=== PATIENT | female | born 1970 | race Two or more races ===

== ENCOUNTER 2021-11-08 16:51 | Inpatient (IN) | payer BC, MEDICAID ==
[~2021-11-08] VITALS: Ht 157.5 cm; Wt 78.0 kg
[~2021-11-08 16:51] MED LIST: LEVO50TA7 PO; METO-158 PO; SIMV-13 PO
[2021-11-08 17:38] LABS: Basophils # (auto) 0 10 ^3/uL (0-0.2); Basophils % (auto) 0.5 % (0.0-2.0); Eosinophils # (auto) 0.2 10 ^3/uL (0-0.8); Hematocrit 41.3 % (36.0-46.0); Hemoglobin 13.4 g/dL (12.2-16.2); Lymphocytes # (auto) 3.2 10 ^3/uL (0.4-5.4); Lymphocytes % (auto) 31.4 % (10.0-50.0); Mean Corpuscular Hemoglobin 27.1 pg (28.0-32.0); Mean Corpuscular Hgb Conc. 32.5 g/dL (32.0-36.0); Mean Corpuscular Volume 83.4 fL (80.0-100.0); Monocytes # (auto) 0.6 10 ^3/uL (0-1.3); Monocytes % (auto) 6.2 % (0.0-12.0); Neutrophils % (auto) 59.9 % (37.0-80.0); Nucleated Red Blood Cells % 0.1 %; Red Blood Cells 4.96 10^6/uL (4.0-5.20); Red Cell Distribution Width 13.8 % (11.8-14.3); White Blood Cell 10.1 10^3/uL (4.4-10.8)
[2021-11-08 17:49] LABS: Albumin 3.8 g/dL (3.4-5.0); Calcium 8.8 mg/dL (8.5-10.1); Magnesium 2.3 mg/dL (1.6-2.6); Potassium 3.7 mmol/L (3.5-5.1)
[2021-11-08 17:52] LABS: Bilirubin, Total 0.3 mg/dL (0.2-1.0); Total Protein 7.5 g/dL (6.4-8.2)
[2021-11-09] MEDS ORDERED: MORPHINE SULFATE INJ 2 MG/ml SYRG IV PRN (00:45)
[2021-11-09] MEDS ORDERED: MORPHINE SULFATE 4 MG/ML SYR/VIAL IV PRN (00:45)
[2021-11-09] MEDS ORDERED: ACETAMINOPHEN 325 MG TAB PO PRN (00:45)
[2021-11-09] MEDS ORDERED: ONDANSETRON HCL 4 MG/2 ML VIAL IV PRN (00:45)
[2021-11-09] MEDS ORDERED: ZOLPIDEM TARTRATE 5 MG TAB PO PRN (00:45)
[2021-11-09] MEDS ORDERED: LORazepam 0.5 MG TAB PO PRN (00:45)
[2021-11-09] MEDS ORDERED: NITROGLYCERIN 0.4 MG SL TAB SL PRN ×2 (00:45)
[2021-11-09 01:56] LABS: Urine Bacteria NONE SEEN /hpf (None Seen); Urine Blood Negative /uL (Negative); Urine Specific Gravity 1.014 (1.001-1.035); Urine WBC 29 /hpf (0 - 5)
[2021-11-09] MEDS: LEVOTHYROXINE SODIUM 50 MCG TAB PO SCH (07:06)
[2021-11-09 07:30] LABS: Basophils # (auto) 0 10 ^3/uL (0-0.2); Basophils % (auto) 0.6 % (0.0-2.0); Eosinophils # (auto) 0.2 10 ^3/uL (0-0.8); Eosinophils % (auto) 3.1 % (0.0-7.0); Hematocrit 38.5 % (36.0-46.0); Hemoglobin 13.3 g/dL (12.2-16.2); Lymphocytes # (auto) 2.1 10 ^3/uL (0.4-5.4); Mean Corpuscular Hemoglobin 28.5 pg (28.0-32.0); Mean Corpuscular Hgb Conc. 34.6 g/dL (32.0-36.0); Mean Corpuscular Volume 82.4 fL (80.0-100.0); Monocytes # (auto) 0.5 10 ^3/uL (0-1.3); Monocytes % (auto) 7.3 % (0.0-12.0); Neutrophils # (auto) 3.7 10 ^3/uL (1.6-8.6); Red Blood Cells 4.67 10^6/uL (4.0-5.20); Red Cell Distribution Width 13.8 % (11.8-14.3); White Blood Cell 6.4 10^3/uL (4.4-10.8)
[2021-11-09 07:31] LABS: Calcium 8.5 mg/dL (8.5-10.1); Magnesium 2.2 mg/dL (1.6-2.6)
[2021-11-09 07:33] LABS: BUN/Creatinine Ratio 20.7
[2021-11-09 09:35] VITALS: BP 140/65
[2021-11-09] MEDS: CLOPIDOGREL BISULFATE 75 MG TAB PO SCH (09:35)
[2021-11-09] MEDS: DOCUSATE SOD 100 MG CAP PO SCH (09:35)
[2021-11-09] MEDS: ASPirin 81 mg TAB PO SCH (09:35)
[2021-11-09] MEDS ORDERED: METOPROLOL SUCCINATE XL 50 MG TAB PO SCH (10:00)
[2021-11-09] MEDS ORDERED: METOPROLOL TARTRATE 25 MG TAB PO SCH (10:00)
[2021-11-09] MEDS ORDERED: ENOXAPARIN SOD 80 MG/0.8ML SYRINGE SC SCH (10:00)
[2021-11-09] MEDS ORDERED: ENALAPRIL MALEATE 2.5 MG TAB PO SCH (10:00)
[2021-11-09] MEDS ORDERED: ASPI-378 PO (12:41)
[2021-11-09 13:20] VITALS: BP 169/88
[2021-11-09] MEDS ORDERED: hydrALAZINE HCL 20 MG/ML VL IV PRN (15:00)
[2021-11-09 17:08] VITALS: BP 111/45
[2021-11-09 22:00] VITALS: BP 148/52
[2021-11-09] MEDS ORDERED: ATORVASTATIN 20 MG TAB PO SCH ×2 (22:00)
[2021-11-10 05:00] VITALS: BP 126/48
[2021-11-10] MEDS: LEVOTHYROXINE SODIUM 50 MCG TAB PO SCH (06:58)
[2021-11-10 08:00] VITALS: BP 146/84
[2021-11-10 09:00] VITALS: BP 146/84
[2021-11-10] MEDS ORDERED: cefTRIAXone 1GM/50ML D5W 50 ML IV SCH (09:00)
[2021-11-10] MEDS: CLOPIDOGREL BISULFATE 75 MG TAB PO SCH (09:48)
[2021-11-10] MEDS: ASPirin 81 mg TAB PO SCH (09:48)
[2021-11-10] MEDS: DOCUSATE SOD 100 MG CAP PO SCH (09:48)
[2021-11-10] MEDS ORDERED: ENOXAPARIN SOD 40 MG/0.4 ML SYRINGE SC SCH (10:00)
[2021-11-10] MEDS ORDERED: LISINOPRIL 10 MG TAB PO SCH (10:00)
[2021-11-10] MEDS ORDERED: METOPROLOL SUCCINATE XL 50 MG TAB PO SCH (10:00)
[2021-11-10] MEDS ORDERED: METO-6 PO (12:55)
[2021-11-10] MEDS ORDERED: LISI-716 PO (12:55)
[2021-11-10 13:00] VITALS: BP 149/82
[2021-11-10 17:17] VITALS: BP 117/74
== END 2021-11-10 17:50 | disposition home or self-care (01) | DRG 198 ==
LOC: ER 16:51 → TELE 11-09 00:39 → TELE-WESTW 11-09 07:55
PROVIDERS: ADMIT Hospitalist; ATTEND Family Medicine
DX: I20.9 Angina pectoris, unspecified (principal); E03.9 Hypothyroidism, unspecified; E66.9 Obesity, unspecified; N39.0 Urinary tract infection, site not specified; E78.5 Hyperlipidemia, unspecified; Z68.31 Body mass index [BMI] 31.0-31.9, adult; I10 Essential (primary) hypertension; I25.2 Old myocardial infarction; Z80.6 Family history of leukemia; Z82.49 Family history of ischemic heart disease and other diseases of the circulatory system; Z83.3 Family history of diabetes mellitus; Z98.51 Tubal ligation status; Z20.822 Contact with and (suspected) exposure to COVID-19
CPT/HCPCS: 36415; 71045; 80048; 80053; 80061; 81001; 81025; 83735; 83880; 84443; 84484; 84702; 85025; 85379; 87086; 93005; 93306; G0378; J0696

== ENCOUNTER 2023-04-09 06:46 | Emergency (ER) | payer MEDICAID ==
[~2023-04-09] VITALS: Ht 157.5 cm; Wt 75.8 kg
[~2023-04-09 06:46] MED LIST changes: +ASPI-378 PO; +LISI10TA34 PO; -METO-158 PO; +METO-6 PO; -SIMV-13 PO; +SIMV40TA18 PO
[2023-04-09 07:40] LABS: Urine Bacteria FEW /hpf (None Seen); Urine Blood Negative /uL (Negative); Urine Clarity Clear (Clear); Urine Protein, UAD Negative (Negative); Urine Specific Gravity 1.012 (1.001-1.035); Urine Urobilinogen Normal (Negative); Urine WBC 1 /hpf (0 - 5); Urine pH 5.5 (5.0-8.0)
[2023-04-09 07:46] VITALS: BP 192/87; PULSE 64; RESP 16; TEMP 97.8; O2SAT 100
[2023-04-09 07:47] LABS: Urine Color Straw (Yellow)
[2023-04-09] MEDS ORDERED: KETOROLAC TROMETH 60MG/2ML VIAL IM ONE (08:00)
[2023-04-09] MEDS ORDERED: IBUP-1455 PO (08:47)
[2023-04-09] MEDS ORDERED: ACE3T PO (08:47)
== END 2023-04-09 08:59 | disposition home or self-care (01) ==
LOC: ER 06:46
DX: S39.011A Strain of muscle, fascia and tendon of abdomen, initial encounter (principal); S76.011A Strain of muscle, fascia and tendon of right hip, initial encounter; I10 Essential (primary) hypertension; Z98.51 Tubal ligation status; W18.39XA Other fall on same level, initial encounter; Y93.89 Activity, other specified; Y92.89 Other specified places as the place of occurrence of the external cause; Y99.8 Other external cause status
CPT/HCPCS: 74176; 81001; 96372; 99285; J1885